=== PATIENT | female | born 1985 | race Caucasian/White ===

== ENCOUNTER 2017-05-06 05:23 | Emergency (ER) | payer BC ==
[~2017-05-06] VITALS: Ht 172.7 cm; Wt 111.9 kg
[~2017-05-06 05:23] MED LIST: ALDACTONE100 MG PO; AVITA20 GM TP; BACTRIM,SEPT1 TABLET PO; CITALOPRAM HBR40 MG PO; CLONAZEPAM0.5 MG PO; COLACE100 MG PO; CYMBALTA20 MG PO; DOXYCYCLINE MO100 MG PO; GLUCOPHAGE XR750 MG PO; KEFLEX500 MG PO; KLONOPIN0.5 M1 PO; NAPROXEN500 MG PO; NICOTINE PATCH1 EAC2 TD; NORCO 5/3251 TABLET PO; NUVARING VAGIN1 EACH VG; PANTOPRAZOLE SO40 MG PO; PHENTERMINE HCL30 MG PO; VALIUM5 MG PO; VIBRAMYCIN100 MG PO; [UNRECOGNIZED DRUG - OTHER] TP
[2017-05-06 05:55] LABS: HEMATOCRIT 40.1 % (36.0-46.0); MCHC 34.2 G/DL (30.0-36.0); MCV 90.7 FL (83-99); MEAN PLAT.VOLUME 11.4 uM^3 (9.5-12.4); PLATELET COUNT 273 K/uL (156-360); RBC DIS.WIDTH-CV 12.6 % (11.8-14.6); RBC DIS.WIDTH-SD 41.7 % (39-53); RED BLOOD COUNT 4.42 M/uL (3.80-5.20); WHITE BLOOD COUNT 16.4 K/uL (4.1-10.2)
[2017-05-06 06:04] LABS: CHLORIDE 109 mEq/L (99-109); POTASSIUM 3.3 mEq/L (3.7-5.4); SODIUM 142 mEq/L (136-147)
[2017-05-06 06:06] LABS: GLUCOSE 138 mg/dL (70-99)
[2017-05-06 06:07] LABS: ANION GAP 12 MEQ/L (2-14)
[2017-05-06 06:08] LABS: TOTAL BILIRUBIN 0.2 mg/dL (0.0-1.0)
[2017-05-06 06:10] LABS: ALKALINE PHOSPHATASE 62 IU/L (3-129); GFR ESTIMATE (CALCULATED) > 59 mL/min/
[2017-05-06 06:11] LABS: UREA NITROGEN (BUN) 13 mg/dL (9-23)
[2017-05-06 06:13] LABS: LIPASE 66 U/L (1.0-51.0)
[2017-05-06 06:19] LABS: QUANTITATIVE HCG < 4.0 MIU/ML
[2017-05-06 08:15] LABS: ADD MIUA? YES; BILIRUBIN NEGATIVE; BLOOD SMALL; COLOR YELLOW ((YELLOW)); GLUCOSE (STRIP) NEGATIVE; KETONES NEGATIVE; LEUKOCYTES NEGATIVE; NITRITE NEGATIVE; PROTEIN (STRIP) NEGATIVE; SPECIFIC GRAVITY 1.013 (1.000-1.030); UROBILINOGEN 0.2 MG/DL (0.2-1.0)
[2017-05-06 08:20] LABS: BACTERIA RARE /HPF; CALCIUM OXALATE CRYSTALS 3+ /HPF; EPITHELIAL CELLS 1+ /HPF; MUCUS TRACE /LPF; RED BLOOD CELLS 0-5 /HPF (0-5); UCUL ADDED? NO; WHITE BLOOD CELLS 0-5 /HPF (0-5)
[2017-05-06] MEDS ORDERED: ZOFRAN4 MG PO (11:00)
[2017-05-06] MEDS ORDERED: PERCOCET 5/31 TABLET PO (11:00)
[2017-05-06 11:14] VITALS: BP 120/74
== END 2017-05-06 11:15 | disposition home or self-care (01) ==
LOC: RME 05:23 → EME 05:23 → RME 11:15
PROVIDERS: Emergency Medicine
DX: N83.201 Unspecified ovarian cyst, right side (principal); E11.9 Type 2 diabetes mellitus without complications; F41.9 Anxiety disorder, unspecified; F32.9 Major depressive disorder, single episode, unspecified; F17.200 Nicotine dependence, unspecified, uncomplicated; Z86.73 Personal history of transient ischemic attack (TIA), and cerebral infarction without residual deficits; Z88.6 Allergy status to analgesic agent; Z88.8 Allergy status to other drugs, medicaments and biological substances
CPT/HCPCS: 71020; 74177; 76705; 80048; 80053; 81003; 83690; 84702; 85027; 99281; 99285; J2270; J2405; J7030

== ENCOUNTER → 2017-06-22 | Outpatient (CLI) | payer BC ==
[~2017-06-22] MED LIST changes: +PERCOCET 5/31 TABLET PO; +ZOFRAN4 MG PO
== END | disposition home or self-care (01) ==
LOC: NUC 06-05 07:30
DX: K21.9 Gastro-esophageal reflux disease without esophagitis (principal); R10.11 Right upper quadrant pain; R10.13 Epigastric pain
CPT/HCPCS: 78227; A9537